=== PATIENT | female | born 1955 | race African-American/Black ===

== ENCOUNTER 2017-05-29 10:31 | Outpatient (CLI) | payer OTHER ==
[2017-05-29 11:10] LABS: Bilirubin Negative (Negative); Blood, Urine Trace (Negative); Clarity Clear (Clear); Glucose, Urine (Dipstick) Negative (Negative); Leukocyte Negative (Negative); Nitrite Negative (Negative); Protein, Urine (Dipstick) Negative (Neg-Trace); pH, Urine 6.5 (5.0-9.0)
[2017-05-29 11:33] LABS: Bacteria/HPF Rare-Few HPF (None Seen); RBC/HPF 0-3 HPF (0-3); Squamous Epithelial 0-3 HPF (0-3); WBC/HPF 0-3 HPF (0-3)
[2017-05-29 11:38] LABS: Amphetamine Not Detected (NotDetected); Barbiturates Screen Not Detected (NotDetected); Benzodiazepine Screen Detected (NotDetected); Cocaine Metabolite Screen Not Detected (NotDetected); Medtox Control Line Valid? VALID (VALID); Methadone Not Detected (NotDetected); Methamphetamine Not Detected (NotDetected); Opiate Screen Detected (NotDetected); Oxycodone Screen Not Detected (NotDetected); Phencyclidine (PCP) Not Detected (NotDetected); THC/Cannabinoid Screen Not Detected (NotDetected); Tricyclic Screen Not Detected (NotDetected)
== END 2017-05-29 10:32 | disposition home or self-care (01) ==
LOC: HPCALD 10:31
PROVIDERS: ATTEND Family Medicine
DX: Z13.6 Encounter for screening for cardiovascular disorders (principal); Z11.59 Encounter for screening for other viral diseases; I10 Essential (primary) hypertension; L93.0 Discoid lupus erythematosus; Z79.899 Other long term (current) drug therapy
CPT/HCPCS: 36415; 80306; 81001

== ENCOUNTER 2017-06-24 10:53 | Emergency (ER) | payer OTHER | END 2017-06-24 11:41 | disposition home or self-care (01) | LOC: BURERS 10:53 | DX: H65.92 Unspecified nonsuppurative otitis media, left ear (principal); K04.7 Periapical abscess without sinus; F32.9 Major depressive disorder, single episode, unspecified; F41.9 Anxiety disorder, unspecified; F17.210 Nicotine dependence, cigarettes, uncomplicated; I10 Essential (primary) hypertension; J44.9 Chronic obstructive pulmonary disease, unspecified; M06.9 Rheumatoid arthritis, unspecified; M32.9 Systemic lupus erythematosus, unspecified; Z79.899 Other long term (current) drug therapy; Z79.51 Long term (current) use of inhaled steroids | CPT/HCPCS: 99282 ==

== ENCOUNTER 2019-08-08 08:04 | Emergency (ER) | payer OTHER | END 2019-08-08 08:35 | disposition home or self-care (01) | LOC: BURERS 08:04 | DX: K02.9 Dental caries, unspecified (principal); I10 Essential (primary) hypertension; K03.81 Cracked tooth; M06.9 Rheumatoid arthritis, unspecified; F17.210 Nicotine dependence, cigarettes, uncomplicated; F32.9 Major depressive disorder, single episode, unspecified; F41.9 Anxiety disorder, unspecified; J44.9 Chronic obstructive pulmonary disease, unspecified; Z79.899 Other long term (current) drug therapy | CPT/HCPCS: 99282 ==

== ENCOUNTER 2019-11-13 15:59 | Emergency (ER) | payer OTHER ==
--- NOTE | 2019-11-13 20:48 | RAD ---
LEFT KNEE FOUR VIEWS: 11/13/19 A vertical fracture is present through the patella. There is little displacement. A large joint effu bk is present as expected. There is loss of the lateral joint space and narrowing of the medial robinson nt space. Some bony spurring is seen particularly medially. A bony projection from the lateral femor al condyle appears old. IMPRESSION: 1. Acute patellar fracture without displacement. 2. Osteoarthritis of the knee. POS: HOME
== END 2019-11-13 17:07 | disposition home or self-care (01) ==
LOC: BURERS 15:59
DX: S82.002A Unspecified fracture of left patella, initial encounter for closed fracture (principal); S29.012A Strain of muscle and tendon of back wall of thorax, initial encounter; S80.212A Abrasion, left knee, initial encounter; J44.9 Chronic obstructive pulmonary disease, unspecified; I10 Essential (primary) hypertension; M06.9 Rheumatoid arthritis, unspecified; F17.210 Nicotine dependence, cigarettes, uncomplicated; Z79.899 Other long term (current) drug therapy; Z79.891 Long term (current) use of opiate analgesic; X50.1XXA Overexertion from prolonged static or awkward postures, initial encounter

== ENCOUNTER 2020-05-05 00:26 | Emergency (ER) | payer MEDICARE, OTHER ==
[2020-05-05 01:27] LABS: #Basophils 0.2 thou/uL (0.0-0.2); #Eosinphils 0.2 thou/uL (0.0-0.7); #Lymphocytes 4.3 thou/uL (1.20-3.40); #Monocytes 0.9 thou/uL (0.11-0.59); #Neutrophils 3.5 thou/uL (1.40-6.50); %Basophils 2.2 % (0.0-1.0); %Eosinophils 2.5 % (0.0-10.0); %Lymphocytes 47.6 % (21.0-51.0); %Monocytes 9.5 % (0.0-10.0); %Neutrophils 38.2 % (42.0-75.0); Hemoglobin 13.2 g/dL (12.0-16.0); Mean Corpuscular HGB CONC 30.3 g/dL (32.0-36.0); Mean Corpuscular Hemoglobin 33.3 pg (27.0-31.0); Mean Platelet Volume 7.5 fL (7.4-10.4); Platelet Count 183 thou/uL (130-400); RBC Distribution Width 11.5 % (11.5-14.5); Red Blood Cell (RBC) Count 3.97 mill/uL (4.20-5.40)
[2020-05-05 01:32] LABS: Prothrombin Time 13.5 sec (12.0-14.7)
[2020-05-05 01:42] LABS: ALT (SGPT) 24 U/L (8-55); AST (SGOT) 32 U/L (5-34); Albumin 3.7 g/dL (3.4-4.8); Alkaline Phosphatase 100 U/L (40-110); Anion Gap 15 mmol/L (10-20); BUN (Urea Nitrogen) 13 mg/dL (9.8-20.1); Bilirubin, Total 0.7 mg/dL (0.2-1.2); Calc. Creatinine Clearance 0 mL/min (70-130); Calcium 8.7 mg/dL (7.8-10.44); Carbon Dioxide 29 mmol/L (23-31); Chloride 100 mmol/L (98-107); Estimated GFR-MDRD 83; Globulin 3.6 g/dL (2.4-3.5); Glucose 119 mg/dL (80-115); Protein, Total 7.3 g/dL (6.0-8.3); Sodium 140 mmol/L (136-145)
[2020-05-05 01:44] LABS: MDiff Complete? YES; Macrocytosis MODERATE=16-30 cells (100X) (0-5/hpf); Platelet Morphology Comment Appears Adequate
[2020-05-05] MEDS ORDERED: Meclizine HCl 25 MG TAB ONE (02:20)
[2020-05-05] MEDS ORDERED: Hydrochlorothiazide 25 MG TAB ONE (02:43)
--- NOTE | 2020-05-05 07:51 | CT ---
PRELIMINARY REPORT/[facility]/EMERGENCY AFTER HOURS PROCEDURE: EXAM: CT Head Without Intravenous Contrast. CLINICAL HISTORY: DIZZINESS THAT STARTED A FEW HOURS AGO TECHNIQUE: Axial computed tomography images of the head/brain without intravenous contrast. COMPARISON: None provided. FINDINGS: BRAIN: No acute intraparenchymal hemorrhage. No mass lesion. No CT evidence for acute territorial inf arct. No midline shift or extra-axial collection. There is a mild age appropriate brain atrophy with mild periventricular white matter disease. VENTRICLES: No hydrocephalus. ORBITS: The orbits are unremarkable. SINUSES AND MASTOIDS: The paranasal sinuses and mastoid air cells are clear. SOFT TISSUES: No significant facial or scalp soft tissue swelling evident. No radiopaque foreign body is seen. BONES: No acute skull fracture. IMPRESSION: No acute intracranial abnormality. ELECTRONICALLY SIGNED BY: Sarah Dahl MD May 05, 2020 2:06:56 AM CDT FINAL REPORT: HEAD CT WITHOUT CONTRAST: HISTORY: Dizziness. COMPARISON: 01/26/2014. FINDINGS: Hemorrhage: No intraparenchymal hemorrhage or extra-axial hematoma. Brain parenchyma: Cortical wade-white matter differentiation is preserved. No mass effect or midline shift. Basilar cisterns are patent.Confluent white matter hypodensities due to chronic small vessel ischemic change. Ventricular system: Ventricles and sulci are patent and symmetric. Calvarium: Intact. Sinuses and mastoid air cells: Adequate aeration. IMPRESSION: 1. This report is in agreement with initial report by [facility]. 2. No acute intracranial process. Transcribed Date/Time: 05/05/2020 8:25 AM
== END 2020-05-05 02:51 | disposition home or self-care (01) ==
LOC: BURERS 00:26
DX: R42 Dizziness and giddiness (principal); I10 Essential (primary) hypertension; B19.20 Unspecified viral hepatitis C without hepatic coma; J44.9 Chronic obstructive pulmonary disease, unspecified; M06.9 Rheumatoid arthritis, unspecified; F17.210 Nicotine dependence, cigarettes, uncomplicated; Z79.899 Other long term (current) drug therapy
CPT/HCPCS: 36415; 70450; 80053; 83880; 84484; 85025; 85610; 93005

== ENCOUNTER 2021-09-05 08:15 | Emergency (ER) | payer MEDICARE, MEDICAID ==
[2021-09-05] MEDS ORDERED: Labetalol HCl 100 MG/20 ML VIAL ONE (09:15)
[2021-09-05 09:56] LABS: #Basophils 0.2 thou/uL (0.0-0.2); #Monocytes 0.7 thou/uL (0.11-0.59); %Eosinophils 0.5 % (0.0-10.0); %Lymphocytes 19.9 % (21.0-51.0); %Neutrophils 70.6 % (42.0-75.0); Hemoglobin 13.7 g/dL (12.0-16.0); Mean Corpuscular HGB CONC 33.2 g/dL (32.0-36.0); Mean Corpuscular Hemoglobin 35.3 pg (27.0-31.0); Mean Platelet Volume 7.7 fL (7.4-10.4); Platelet Count 212 thou/uL (130-400); RBC Distribution Width 12.3 % (11.5-14.5); Red Blood Cell (RBC) Count 3.87 mill/uL (4.20-5.40)
[2021-09-05 10:05] LABS: ALT (SGPT) 24 U/L (8-55); AST (SGOT) 45 U/L (5-34); Albumin 3.5 g/dL (3.4-4.8); Alkaline Phosphatase 131 U/L (40-110); Anion Gap 19 mmol/L (10-20); BUN (Urea Nitrogen) 7 mg/dL (9.8-20.1); Bilirubin, Total 1.5 mg/dL (0.2-1.2); CK (CPK) 153 U/L (29-168); Calc. Creatinine Clearance 0 mL/min (70-130); Calcium 9.7 mg/dL (7.8-10.44); Carbon Dioxide 22 mmol/L (23-31); Chloride 102 mmol/L (98-107); Globulin 4.8 g/dL (2.4-3.5); Glucose 127 mg/dL (80-115); Potassium 4.6 mmol/L (3.5-5.1); Protein, Total 8.3 g/dL (5.8-8.1); Sodium 138 mmol/L (136-145)
[2021-09-05 10:11] LABS: MDiff Complete? YES; Macrocytosis SLIGHT = 6-15 cells (100X) (0-5/hpf); Platelet Morphology Comment Appears Adequate
[2021-09-05 10:22] LABS: Bilirubin Negative (Negative); Blood, Urine Trace (Negative); Clarity Clear (Clear); Glucose, Urine (Dipstick) Negative (Negative); Ketone, Urine Negative (Negative); Leukocyte Negative (Negative); Nitrite Negative (Negative); Protein, Urine (Dipstick) Negative (Neg-Trace); Specific Gravity, Urine 1.015 (1.005-1.030); Urobilinogen > or = 8.0 mg/dL (Less than 2); pH, Urine 6.5 (5.0-9.0)
[2021-09-05 10:29] LABS: RBC/HPF 0-3 HPF (0-3); Squamous Epithelial 0-3 HPF (0-3); WBC/HPF 0-3 HPF (0-3)
[2021-09-05 10:30] LABS: Bacteria/HPF 1+ HPF (None Seen)
[2021-09-05] MEDS ORDERED: Acetaminophen 500 MG TAB ONE (10:35)
== END 2021-09-05 11:42 | disposition home or self-care (01) ==
LOC: BURERS 08:15
DX: S83.92XA Sprain of unspecified site of left knee, initial encounter (principal); M17.12 Unilateral primary osteoarthritis, left knee; R03.0 Elevated blood-pressure reading, without diagnosis of hypertension; J44.9 Chronic obstructive pulmonary disease, unspecified; I10 Essential (primary) hypertension; F17.210 Nicotine dependence, cigarettes, uncomplicated; Z79.899 Other long term (current) drug therapy; W18.30XA Fall on same level, unspecified, initial encounter
CPT/HCPCS: 36415; 51701; 71045; 80053; 81003; 81015; 82550; 83880; 84443; 84484; 85025; 93005; 94760; 96374

== ENCOUNTER 2022-04-12 16:42 | Emergency (ER) | payer OTHER ==
[2022-04-12 17:22] LABS: Hemoglobin 13.2 g/dL (12.0-16.0); Mean Corpuscular HGB CONC 33.7 g/dL (32.0-36.0); Mean Corpuscular Hemoglobin 35.5 pg (27.0-31.0); Platelet Count 242 thou/uL (130-400); RBC Distribution Width 12.1 % (11.5-14.5); Red Blood Cell (RBC) Count 3.72 mill/uL (4.20-5.40); White Blood Cell (WBC) Count 8.5 thou/uL (4.8-10.8)
[2022-04-12 17:36] LABS: ALT (SGPT) 16 U/L (8-55); AST (SGOT) 22 U/L (5-34); Albumin 3.8 g/dL (3.4-4.8); Alkaline Phosphatase 96 U/L (40-110); Anion Gap 17 mmol/L (10-20); BUN (Urea Nitrogen) 6 mg/dL (9.8-20.1); Bilirubin, Total 1.2 mg/dL (0.2-1.2); Calc. Creatinine Clearance 0 mL/min (70-130); Calcium 9.4 mg/dL (7.8-10.44); Carbon Dioxide 23 mmol/L (23-31); Chloride 99 mmol/L (98-107); Estimated GFR 84; Globulin 4.2 g/dL (2.4-3.5); Glucose 120 mg/dL (80-115); Potassium 3.2 mmol/L (3.5-5.1); Sodium 136 mmol/L (136-145)
[2022-04-12 17:37] LABS: Acetaminophen Less than 10.0 mcg/mL (10.0-30.0); Alcohol Less than 10 mg/dL (Less than 10); Band 1 % (5-11); Eosinophils 1 % (0-10); Lymphocytes 20 % (21-51); MDiff Complete? YES; Macrocytosis SLIGHT = 6-15 cells (100X) (0-5/hpf); Monocytes 11 % (0-10); Neutrophil 63 % (42-75); Reactive Lymphocytes 4 % (0-10); Salicylate Less than 8.0 mg/dL (15.0-30.0)
[2022-04-12] MEDS ORDERED: Potassium Chloride 20 MEQ TAB ONE (17:47)
[2022-04-12] MEDS ORDERED: Aspirin 325 MG TAB ONE (18:05)
[2022-04-12 20:08] LABS: Bilirubin Negative (Negative); Blood, Urine Negative (Negative); Clarity Cloudy (Clear); Glucose, Urine (Dipstick) Negative (Negative); Ketone, Urine Negative (Negative); Leukocyte Large (Negative); Nitrite Negative (Negative); Protein, Urine (Dipstick) Negative (Neg-Trace)
[2022-04-12 20:15] LABS: Bacteria/HPF 4+ HPF (None Seen); RBC/HPF 0-3 HPF (0-3); Squamous Epithelial 0-3 HPF (0-3)
[2022-04-12 20:25] LABS: Amphetamine Not Detected (NotDetected); Benzodiazepine Screen Not Detected (NotDetected); Cocaine Metabolite Screen Not Detected (NotDetected); Methadone Not Detected (NotDetected); Methamphetamine Not Detected (NotDetected); Opiate Screen Detected (NotDetected); Phencyclidine (PCP) Not Detected (NotDetected); THC/Cannabinoid Screen Not Detected (NotDetected); Tricyclic Screen Not Detected (NotDetected)
[2022-04-12] MEDS ORDERED: Sulfameth/Trimethoprim DS 800-160mg TAB ONE (20:25)
[2022-04-12 20:26] LABS: Barbiturates Screen Not Detected (NotDetected); Medtox Control Line Valid? VALID (VALID); Oxycodone Screen Detected (NotDetected)
== END 2022-04-12 20:51 | disposition home or self-care (01) ==
LOC: BURERS 16:42
DX: N39.0 Urinary tract infection, site not specified (principal); J44.9 Chronic obstructive pulmonary disease, unspecified; I10 Essential (primary) hypertension; M06.9 Rheumatoid arthritis, unspecified; F17.210 Nicotine dependence, cigarettes, uncomplicated; E87.6 Hypokalemia; Z79.899 Other long term (current) drug therapy
CPT/HCPCS: 70450; 71045; 80053; 80306; 80307; 81003; 81015; 83605; 83880; 84484; 85025; 93005; 94760; 96360; 96361

== ENCOUNTER 2022-04-15 01:30 | Emergency (ER) | payer OTHER ==
[2022-04-15 02:47] LABS: ALT (SGPT) 18 U/L (8-55); AST (SGOT) 33 U/L (5-34); Albumin 3.8 g/dL (3.4-4.8); Alcohol Less than 10 mg/dL (Less than 10); Alkaline Phosphatase 82 U/L (40-110); Anion Gap 17 mmol/L (10-20); BUN (Urea Nitrogen) 9 mg/dL (9.8-20.1); Bilirubin, Total 0.9 mg/dL (0.2-1.2); Calc. Creatinine Clearance 0 mL/min (70-130); Calcium 9.3 mg/dL (7.8-10.44); Carbon Dioxide 22 mmol/L (23-31); Chloride 100 mmol/L (98-107); Estimated GFR 71; Globulin 4.2 g/dL (2.4-3.5); Glucose 91 mg/dL (80-115); Potassium 3.8 mmol/L (3.5-5.1); Sodium 135 mmol/L (136-145)
[2022-04-15 02:49] LABS: Bilirubin Negative (Negative); Blood, Urine Trace (Negative); Clarity Clear (Clear); Glucose, Urine (Dipstick) Negative (Negative); Ketone, Urine Negative (Negative); Leukocyte Negative (Negative); Nitrite Negative (Negative); Protein, Urine (Dipstick) Negative (Neg-Trace); pH, Urine 6.5 (5.0-9.0)
[2022-04-15 02:59] LABS: Specific Gravity, Urine Less/Equal 1.005 (1.005-1.030)
[2022-04-15 03:01] LABS: #Basophils 0.2 thou/uL (0.0-0.2); #Eosinphils 0.3 thou/uL (0.0-0.7); #Lymphocytes 3.6 thou/uL (1.20-3.40); #Monocytes 0.8 thou/uL (0.11-0.59); %Basophils 2.9 % (0.0-1.0); %Lymphocytes 44.5 % (21.0-51.0); %Monocytes 10.4 % (0.0-10.0); %Neutrophils 39.3 % (42.0-75.0); Hemoglobin 12.7 g/dL (12.0-16.0); Mean Corpuscular HGB CONC 33.8 g/dL (32.0-36.0); Mean Corpuscular Hemoglobin 35.5 pg (27.0-31.0); Mean Platelet Volume 8.5 fL (7.4-10.4); Platelet Count 150 thou/uL (130-400); White Blood Cell (WBC) Count 7.6 thou/uL (4.8-10.8)
[2022-04-15 03:02] LABS: Amphetamine Not Detected (NotDetected); Barbiturates Screen Not Detected (NotDetected); Benzodiazepine Screen Not Detected (NotDetected); Cocaine Metabolite Screen Not Detected (NotDetected); Medtox Control Line Valid? VALID (VALID); Methadone Not Detected (NotDetected); Methamphetamine Not Detected (NotDetected); Opiate Screen Not Detected (NotDetected); Oxycodone Screen Not Detected (NotDetected); Phencyclidine (PCP) Not Detected (NotDetected); THC/Cannabinoid Screen Not Detected (NotDetected); Tricyclic Screen Not Detected (NotDetected)
[2022-04-15 03:10] LABS: Bacteria/HPF None Seen HPF (None Seen); RBC/HPF 0-3 HPF (0-3); Squamous Epithelial None Seen HPF (0-3); WBC/HPF None Seen HPF (0-3)
[2022-04-15 05:54] LABS: Macrocytosis SLIGHT = 6-15 cells (100X) (0-5/hpf)
== END 2022-04-15 03:45 | disposition home or self-care (01) ==
LOC: BURERS 01:30
DX: R41.0 Disorientation, unspecified (principal); N39.0 Urinary tract infection, site not specified
CPT/HCPCS: 36415; 71045; 80053; 80306; 80307; 81003; 81015; 82140; 83880; 84443; 84484; 85025; 93005

== ENCOUNTER 2022-08-28 15:38 | Emergency (ER) | payer OTHER ==
[2022-08-28 17:42] LABS: #Basophils 0.1 thou/uL (0.0-0.2); #Lymphocytes 2.1 thou/uL (1.20-3.40); #Monocytes 0.7 thou/uL (0.11-0.59); #Neutrophils 6.2 thou/uL (1.40-6.50); %Basophils 1.3 % (0.0-1.0); %Eosinophils 0.3 % (0.0-10.0); %Lymphocytes 22.8 % (21.0-51.0); %Monocytes 7.2 % (0.0-10.0); %Neutrophils 68.4 % (42.0-75.0); Hemoglobin 14.5 g/dL (12.0-16.0); Mean Corpuscular HGB CONC 32.5 g/dL (32.0-36.0); Mean Corpuscular Hemoglobin 34.4 pg (27.0-31.0); Mean Platelet Volume 7.3 fL (7.4-10.4); Platelet Count 295 10x3/uL (130-400); Red Blood Cell (RBC) Count 4.21 mill/uL (4.20-5.40)
[2022-08-28 17:56] LABS: Platelet Morphology Comment Appears Adequate; RBC Morphology Normal
[2022-08-28 17:57] LABS: ALT (SGPT) 17 U/L (8-55); AST (SGOT) 33 U/L (5-34); Albumin 3.8 g/dL (3.4-4.8); Alkaline Phosphatase 107 U/L (40-110); Anion Gap 16 mmol/L (10-20); BUN (Urea Nitrogen) 9 mg/dL (9.8-20.1); Calc. Creatinine Clearance 0 mL/min (70-130); Calcium 9.3 mg/dL (7.8-10.44); Carbon Dioxide 26 mmol/L (23-31); Chloride 100 mmol/L (98-107); Estimated GFR 90; Globulin 4.7 g/dL (2.4-3.5); Glucose 120 mg/dL (80-115); MDiff Complete? YES; Potassium 3.8 mmol/L (3.5-5.1); Protein, Total 8.5 g/dL (5.8-8.1); Sodium 138 mmol/L (136-145)
[2022-08-28 17:58] LABS: Acetaminophen Less than 10.0 mcg/mL (10.0-30.0); Alcohol Less than 10 mg/dL (Less than 10); CK (CPK) 359 U/L (29-168); Magnesium 1.9 mg/dL (1.6-2.6); Salicylate Less than 8.0 mg/dL (15.0-30.0)
[2022-08-28 19:43] LABS: Bilirubin Small (Negative); Blood, Urine Moderate (Negative); Clarity Slightly Cloudy (Clear); Glucose, Urine (Dipstick) 100 mg/dL (Negative); Ketone, Urine Negative (Negative); Leukocyte Negative (Negative); Nitrite Negative (Negative); Protein, Urine (Dipstick) Negative (Neg-Trace); Specific Gravity, Urine 1.025 (1.005-1.030); Urobilinogen > or = 8.0 mg/dL (Less than 2)
[2022-08-28 19:51] LABS: Cocaine Metabolite Screen Not Detected (NotDetected); Methamphetamine Not Detected (NotDetected); Phencyclidine (PCP) Not Detected (NotDetected); THC/Cannabinoid Screen Not Detected (NotDetected)
[2022-08-28 19:52] LABS: Amphetamine Not Detected (NotDetected); Barbiturates Screen Not Detected (NotDetected); Benzodiazepine Screen Detected (NotDetected); Medtox Control Line Valid? VALID (VALID); Methadone Not Detected (NotDetected); Opiate Screen Detected (NotDetected); Oxycodone Screen Not Detected (NotDetected); Tricyclic Screen Not Detected (NotDetected)
[2022-08-28 19:58] LABS: Squamous Epithelial 0-3 HPF (0-3); WBC/HPF 0-3 HPF (0-3)
[2022-08-28 19:59] LABS: Bacteria/HPF None Seen HPF (None Seen); Mucous/LPF 1+ LPF (<2+)
== END 2022-08-28 21:21 | disposition home or self-care (01) ==
LOC: BURERS 15:38
DX: S16.1XXA Strain of muscle, fascia and tendon at neck level, initial encounter (principal); S00.93XA Contusion of unspecified part of head, initial encounter; E86.0 Dehydration; I10 Essential (primary) hypertension; J44.9 Chronic obstructive pulmonary disease, unspecified; F17.210 Nicotine dependence, cigarettes, uncomplicated; W19.XXXA Unspecified fall, initial encounter; Y92.009 Unspecified place in unspecified non-institutional (private) residence as the place of occurrence of the external cause
CPT/HCPCS: 51701; 70450; 71045; 72125; 80053; 80306; 80307; 81003; 81015; 82550; 83735; 83880; 84484; 85025; 93005; 94760; 96360; 96361

== ENCOUNTER 2023-07-01 17:02 | Emergency (ER) | payer OTHER ==
[~2023-07-01 17:02] MED LIST: Iopamidol 370 76% 100 ML VIAL ONE
[2023-07-01] MEDS ORDERED: Aspirin Chewable 81 MG TAB ONE (17:28)
[2023-07-01] MEDS ORDERED: Acetaminophen 500 MG TAB ONE (17:28)
[2023-07-01] MEDS ORDERED: Ibuprofen 200 MG TAB ONE (17:28)
[2023-07-01 17:50] LABS: #Basophils 0.1 thou/uL (0.0-0.2); #Monocytes 0.3 thou/uL (0.11-0.59); #Neutrophils 7.2 thou/uL (1.40-6.50); %Basophils 0.7 % (0.0-1.0); %Eosinophils 0.1 % (0.0-10.0); %Lymphocytes 11.8 % (21.0-51.0); %Monocytes 3.7 % (0.0-10.0); %Neutrophils 83.8 % (42.0-75.0); Hematocrit 45.8 % (36.0-47.0); Hemoglobin 15.9 g/dL (12.0-16.0); Mean Corpuscular HGB CONC 34.8 g/dL (32.0-36.0); Mean Corpuscular Hemoglobin 35.8 pg (27.0-31.0); Mean Platelet Volume 8.2 fL (7.4-10.4); Platelet Count 373 10x3/uL (130-400); RBC Distribution Width 11.2 % (11.5-14.5); Red Blood Cell (RBC) Count 4.44 mill/uL (4.20-5.40); White Blood Cell (WBC) Count 8.6 10x3/uL (4.8-10.8)
[2023-07-01 18:03] LABS: ALT (SGPT) 27 U/L (8-55); AST (SGOT) 41 U/L (5-34); Albumin 4.1 g/dL (3.4-4.8); Alkaline Phosphatase 141 U/L (40-110); Anion Gap 21 mmol/L (10-20); BUN (Urea Nitrogen) 24 mg/dL (9.8-20.1); Bilirubin, Total 1.3 mg/dL (0.2-1.2); Calc. Creatinine Clearance 0 mL/min (70-130); Calcium 9.8 mg/dL (7.8-10.44); Carbon Dioxide 20 mmol/L (23-31); Chloride 95 mmol/L (98-107); Estimated GFR 63; Globulin 4.9 g/dL (2.4-3.5); Glucose 143 mg/dL (80-115); Potassium 3.5 mmol/L (3.5-5.1); Sodium 132 mmol/L (136-145)
[2023-07-01 18:04] LABS: Troponin I 0.022 ng/mL (< 0.028)
[2023-07-01 18:05] LABS: Platelet Adequacy Comment Appears Adequate
[2023-07-01 18:06] LABS: MDiff Complete? YES; Prothrombin Time 13.5 sec (12.0-14.7)
[2023-07-01 18:07] LABS: PTT 27.3 sec (22.9-36.1)
[2023-07-01 18:09] LABS: D-Dimer Test 0.75 *mcg/mL (0.27-0.43)
[2023-07-01] MEDS ORDERED: Ondansetron PF 4 MG/2 ML Vial ONE (19:23)
[2023-07-01] MEDS ORDERED: Morphine 4 MG/ML VIAL ONE (19:23)
== END 2023-07-01 20:27 | disposition home or self-care (01) ==
LOC: BURERS 17:02
DX: I26.93 Single subsegmental thrombotic pulmonary embolism without acute cor pulmonale (principal); I10 Essential (primary) hypertension; F17.210 Nicotine dependence, cigarettes, uncomplicated; J44.9 Chronic obstructive pulmonary disease, unspecified
CPT/HCPCS: 36415; 71045; 71275; 80053; 83880; 84484; 85025; 85379; 85610; 85730; 93005; 96372; 96374; 96375; J1650; J2270; J2405; Q9967

== ENCOUNTER 2024-01-20 12:39 | Emergency (ER) | payer MEDICARE, OTHER ==
[2024-01-20] MEDS ORDERED: Nitroglycerin 2% Ointment 1 INCH/1 GM Packet ONE (13:01)
[2024-01-20 13:54] LABS: #Basophils 0.2 thou/uL (0.0-0.2); #Eosinphils 0.1 thou/uL (0.0-0.7); #Lymphocytes 2.2 thou/uL (1.20-3.40); #Monocytes 0.7 thou/uL (0.11-0.59); #Neutrophils 3.1 thou/uL (1.40-6.50); %Basophils 2.6 % (0.0-1.0); %Lymphocytes 34.5 % (21.0-51.0); %Monocytes 11.4 % (0.0-10.0); %Neutrophils 49.5 % (42.0-75.0); Hematocrit 40.1 % (36.0-47.0); Hemoglobin 12.9 g/dL (12.0-16.0); Mean Corpuscular HGB CONC 32.1 g/dL (32.0-36.0); Mean Corpuscular Hemoglobin 32.6 pg (27.0-31.0); Mean Platelet Volume 7.4 fL (7.4-10.4); Platelet Count 198 10x3/uL (130-400); RBC Distribution Width 13.7 % (11.5-14.5); Red Blood Cell (RBC) Count 3.94 mill/uL (4.20-5.40); White Blood Cell (WBC) Count 6.2 10x3/uL (4.8-10.8)
[2024-01-20 14:12] LABS: Troponin I 0.022 ng/mL (< 0.028)
[2024-01-20 14:13] LABS: ALT (SGPT) 20 U/L (8-55); AST (SGOT) 38 U/L (5-34); Albumin 3.7 g/dL (3.4-4.8); Alkaline Phosphatase 111 U/L (40-110); Anion Gap 18 mmol/L (10-20); BUN (Urea Nitrogen) 11 mg/dL (9.8-20.1); Bilirubin, Total 0.7 mg/dL (0.2-1.2); Calc. Creatinine Clearance 0 mL/min (70-130); Calcium 9.1 mg/dL (7.8-10.44); Carbon Dioxide 23 mmol/L (23-31); Chloride 100 mmol/L (98-107); Estimated GFR 52; Globulin 4.5 g/dL (2.4-3.5); Glucose 101 mg/dL (80-115); Potassium 4.2 mmol/L (3.5-5.1); Protein, Total 8.2 g/dL (5.8-8.1); Sodium 137 mmol/L (136-145)
== END 2024-01-20 14:50 | disposition home or self-care (01) ==
LOC: BURERS 12:39
DX: R07.9 Chest pain, unspecified (principal); I10 Essential (primary) hypertension; F17.210 Nicotine dependence, cigarettes, uncomplicated; F17.200 Nicotine dependence, unspecified, uncomplicated
CPT/HCPCS: 36415; 71046; 80053; 83880; 84484; 85025; 93005; 94760

== ENCOUNTER 2024-01-21 22:47 | Emergency (ER) | payer MEDICARE, OTHER | END 2024-01-21 23:58 | disposition home or self-care (01) | LOC: BURERS 22:47 | DX: G47.9 Sleep disorder, unspecified (principal); I10 Essential (primary) hypertension; J44.9 Chronic obstructive pulmonary disease, unspecified; F17.210 Nicotine dependence, cigarettes, uncomplicated ==

== ENCOUNTER 2024-01-31 15:32 | Emergency (ER) | payer MEDICARE, OTHER ==
[2024-01-31] MEDS ORDERED: Ketorolac Tromethamine 30 MG (1 mL) VIAL ONE (19:11)
== END 2024-01-31 19:50 | disposition home or self-care (01) ==
LOC: BURERS 15:32
DX: R07.89 Other chest pain (principal); R19.7 Diarrhea, unspecified; I10 Essential (primary) hypertension; J44.9 Chronic obstructive pulmonary disease, unspecified; F17.210 Nicotine dependence, cigarettes, uncomplicated
CPT/HCPCS: 93005; 96372; J1885